=== PATIENT | female | born 1960 | race Two or more races ===

== ENCOUNTER 2022-12-23 16:51 | Emergency (ER) | payer MEDICARE, MEDICAID ==
[~2022-12-23] VITALS: Ht 167.6 cm; Wt 100.7 kg
[2022-12-23 19:17] LABS: Urine Bacteria NONE SEEN /hpf (None Seen); Urine Blood TRACE /uL (Negative); Urine Specific Gravity 1.004 (1.001-1.035); Urine WBC 3 /hpf (0 - 5)
[2022-12-23 20:20] VITALS: BP 156/96
[2022-12-23] MEDS ORDERED: NITROFURANTOIN 100 mg CAP PO ONE (20:30)
[2022-12-23] MEDS ORDERED: NITR-87 PO (20:32)
== END 2022-12-23 21:04 | disposition home or self-care (01) ==
LOC: ER 16:56
DX: N39.0 Urinary tract infection, site not specified (principal)
CPT/HCPCS: 81001